=== PATIENT | female | born 2005 | race African-American/Black ===

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

== ENCOUNTER 2025-04-29 14:48 | Outpatient (CLI) | payer OTHER, SELFPAY ==
--- OUTSIDE RECORDS SUMMARY | 2025-04-29 15:18 | XMS_ITS | Encounter Summary ---
Author Organization [facility] Health Address [address] [place] [address] Care Team Providers Care Tooth Cutter Pinion Name Role Phone Unavailable Primary Care Provider Unavailabl e Prior Encounters Date Type Department Care Team Description 11/08/2021 11:30 AM CDT Office Visit [facility] [address] [place] [phone] Meera Hager, FREDDY Plan of Treatment Not on file Procedures Procedure Name Priority Date/Time Associated Diagnosis Comments 18 SEALANT 2ND MOLAR Routine 11/08/2021 11:30 AM CDT 15 SEALANT 2ND MOLAR Routine 11/08/2021 11:30 AM CDT 31 SEALANT 2ND MOLAR Routine 11/08/2021 11:30 AM CDT 2 SEALANT 2ND MOLAR Routine 11/08/2021 1 1:30 AM CDT ORAL HYGIENE INSTRUCTIONS Routine 2021 11:30 AM CDT TOPICAL APPLICATION OF FLUORIDE VARNISH Routine 11/08/2021 11:30 AM CDT PROPHYLAXIS - CHILD Routine 11/08/2021 1 1:30 AM CDT INTRAORAL PHOTO Routine 11/08/2021 11:30 AM CDT INTRAORAL PHOTO Routine 11/08/2021 11:30 AM CDT INTRAORAL PHOTO Routine 11/08/2021 11:30 AM CDT INTRAORAL PHOTO Routine 11/08/2021 11:30 AM CDT PANORAMIC RADIOGRAPHIC IMAGE Routine 11/08/2021 11:30 AM CDT ADDITIONAL X-RAY Routine 11/08/2021 11:3 0 AM CDT ADDITIONAL X-RAY Routine 11/08/2021 11:3 0 AM CDT ADDITIONAL X-RAY Routine 11/08/2021 11:3 0 AM CDT ADDITIONAL X-RAY Routine 11/08/2021 11:3 0 AM CDT ADDITIONAL X-RAY Routine 11/08/2021 11:3 0 AM CDT SINGLE X-RAY Routine 11/08/2021 11:30 AM CDT BITEWINGS - TWO RADIOGRAPHIC IMAGES Routine 11/08/2021 11:30 AM CDT COMPREHENSIVE ORAL EVALUATION - NEW OR ESTABLISHED PATIENT Routine 11/08/2021 11:30 AM CDT Visit Diagnoses Not on file Insurance [employer]
--- OUTSIDE RECORDS SUMMARY | 2025-04-29 15:18 | XMS_ITS | Clinical Summary ---
Author Organization [facility] Health Address [address] [place] [address] Care Team Providers Care Mid Level Clinician Name Role Phone Unavailable Primary Care Provider Unavailabl e Medications No known medications Active Problems No known active problems Social History Tobacco Use Types Packs/Day Years Used Date Smoking Tobacco: Never Assessed Comments Unknown Sex and Gender Information Value Date Recorded Sex Assigned at Not on file Legal Sex Female 10:43 AM PST Gender Identity Not on file Sexual Orientation Not on file Plan of Treatment Health Maintenance Due Date Last Done Comments Dental Oral Exam 05/12/2022 11/08/2021 Dental Prophylaxis 05/12/2022 11/08/2021 Dental X-Ray: Bitewings 05/12/2022 11/08/2021 Dental X-Ray: Full Mouth 11/09/2024 11/08/2021 Dental X-Ray: Panoramic 11/09/2024 11/08/2021 Procedures Procedure Name Priority Date/Time Associated Diagnosis Comments PANORAMIC RADIOGRAPHIC IMAGE Routine 11/08/2021 11:30 AM CDT PROPHYLAXIS - CHILD Routine 11/08/2021 1 1:30 AM CDT COMPREHENSIVE ORAL EVALUATION - NEW OR ESTABLISHED PATIENT Routine 11/08/2021 11:30 AM CDT from Last 3 Months or Most Recently Relevant to Health Maintenance Insurance [employer] PPO
--- OUTSIDE RECORDS SUMMARY | 2025-04-29 15:18 | XMS_ITS | Clinical Summary ---
Author Organization [facility] Address [address] [place] [address] Care Team Providers Care Swine Genetics Researcher Name Role Phone Wilbur Alford MD Primar y Care Provider Source Comments [facility],non-owned Affiliates and Associated Physician Practices is amultiple site organization consisting of ambulatory clinics and hospital sitesin [place], [place], [place] and [place]. This disclosure is being madepursuant to the Care Everywhere program and may not contain all information available regarding this patient. Last updated 18.[facility] Social History Tobacco Use Types Packs/Day Years Used Date Smoking Tobacco: Never Assessed Comments Unknown Sex and Gender Information Value Date Recorded Sex Assigned at Not on file Legal Sex Female 1:03 PM [employer] [place] Gender Identity Not on file Sexual Orientation Not on file Plan of Treatment Health Maintenance Due Date Last Done Comments HIV SCREENING 01/22/2020 HPV VACCINE (1 - 3-dose series) 01/22/2020 CHLAMYDIA/GONORRHEA SCREENING 2021 MENINGOCOCCAL (Group B) VACC INE SHARED DECISION-MAKING (1 of 2 - Standard) 2021 HEPATITIS C SCREENING 01/17/2023 DTAP/TDAP/TD VACCINES (1 - Tdap) 01/22/2024 HEPATITIS B VACCINE (1 of 3 - 19+ 3-dose series) 01/22/2024 DEPRESSION SCREENING 08/20/2024 COVID-19 VACCINE (1 - 2023-2 5 season) 2025 INFLUENZA VACCINE (#1) 2025 ZOSTER VACCINE (1 of 2) 2055 HIB VACCINE Aged Out No longer eligi ble based on patient's age to complete this topic MENINGOCOCCAL GROUPS A/C/Y/W VACCINE Aged Out No longer eligible b ased on patient's age to complete this topic PNEUMOCOCCAL VACCINE Aged Out No long er eligible based on patient's age to complete this topic Insurance [employer] Care Teams Swine Genetics Researcher Relationship Specialty Start Date End Date Wilbur Alford MD [address] [place] [id number] PCP - General Internal Medicine 07/24/18
--- NOTE | 2025-05-08 17:07 | P.PCNPFT_ITS ---
PFT Procedure Performed PFT Procedure Performed Spirometry with Pre/Post Bronchodilator Plethysmography (Lung Vol) Diffusing Cap (DLCO) Flow Vol Loop PFT Interpretation DOS: 04/29/2025 REQUESTING: Rosamaria Peters APRN REASON FOR TESTING: shortness of breath PULMONARY FUNCTION TESTS Results are reliable and reproducible. Repeatability of spirometry FEV1 maneuver pre and post bronchodilator is Grade A. Yash: GLI 2012 reference equations were used. Spirometry: The pre-bronchodilator FEV1 is 2.18 L, 66%, decreased. The pre- bronchodilator FVC is 3.83 L, 102%, normal. The FEV1/FVC ratio is 57%, decreased, consistent with airflow obstruction. After bronchodilator, the FEV1 is 2.03 L, 62%, -7%. After bronchodilator, the FVC is 3.63 L, 97%, -5%. The FEV1/FVC ratio is 56%. Lung volumes: The total lung capacity is 4.71 L, 94%, normal. The functional residual capacity is 2.67 L, 94%, normal. The residual volume is 0.89 L, 69%, normal. The RV/TLC is 19%, normal. Airway resistance is increased. Diffusion: DLCO is 19.8, 71%, mildly decreased. The DLCO/VA is 4.49, 92%, normal. Flow volume loop: The flow volume loop shows flattening of the inspiratory and expiratory limbs. IMPRESSION: This shows a moderate obstructive ventilatory impairment without response to bronchodilator, normal lung volumes, and a mild decrease in diffusion which corrects for alveolar volume. The flattening of the inspiratory and expiratory loops suggests a fixed central or upper airway narrowing. This includes causes including tracheal stenosis, vocal cord paralysis or vocal fold paralysis, goiter, relapsing polychondritis and other ethologies. Consider CT of the neck without contrast or ENT referral for laryngoscopy. America Wilder MD
== END 2025-04-29 14:49 | disposition home or self-care (01) ==
PROVIDERS: PCP Nurse Practitioner Family; Visit Provider Nurse Practitioner Family
DX: R06.09 Other forms of dyspnea (principal); R06.2 Wheezing; R06.02 Shortness of breath
CPT/HCPCS: 94060; 94726; 94729